=== PATIENT | female | born 1960 | race Caucasian/White ===

== ENCOUNTER 2017-07-31 14:56 | Outpatient (CLI) | payer OTHER | END 2017-07-31 14:57 | disposition home or self-care (01) | LOC: SC 14:56 | PROVIDERS: ATTEND Nurse Practitioner Family | DX: R06.83 Snoring (principal); E66.9 Obesity, unspecified | CPT/HCPCS: 99204; 99212 ==

== ENCOUNTER 2018-03-24 08:00 | Outpatient (CLI) | payer OTHER ==
[2018-03-24 12:46] LABS: BASOPHILS % (AUTO) 0.5 %; EOSINOPHILS # (AUTO) 0.1 10^3/uL (0.0-0.7); EOSINOPHILS % (AUTO) 1.9 %; HGB - HEMOGLOBIN 14.3 g/dL (12.0-16.0); LYMPHOCYTES # (AUTO) 2.1 10^3/uL (1.5-3.5); LYMPHOCYTES % (AUTO) 36.1 %; MEAN CORPUSCULAR HEMOGLOBIN 29.7 pg (27.0-31.0); MEAN CORPUSCULAR HGB CONC 33.9 g/dL (32.0-36.0); MEAN CORPUSCULAR VOLUME 87.4 fL (81.0-99.0); MEAN PLATELET VOLUME 7.6 fL (7.9-10.8); MONOCYTES # (AUTO) 0.4 10^3/uL (0.0-1.0); MONOCYTES % (AUTO) 7.1 %; NEUTROPHILS # (AUTO) 3.1 10^3/uL (1.5-6.6); NEUTROPHILS % (AUTO) 54.4 %; PLT - PLATELET COUNT 322 10^3/uL (130-450); RED BLOOD COUNT 4.81 10^6/uL (4.20-5.40); RED CELL DISTRIBUTION WIDTH 13.9 % (12.0-15.0); WHITE BLOOD COUNT 5.7 x10^3/uL (4.8-10.8)
[2018-03-24 12:57] LABS: HB2 TOTAL 15.7 g/dL; HEMOGLOBIN A1C 0.61 g/dL; HEMOGLOBIN A1C % 5.7 % (4.6-6.2)
[2018-03-24 13:06] LABS: ALBUMIN 3.8 g/dL (3.2-5.5); ALBUMIN/GLOBULIN RATIO 1.3 (1.0-2.2); ALKALINE PHOSPHATASE 99 IU/L (42-121); ALT ALANINE AMINOTRANSFERASE 32 IU/L (10-60); AST ASPARTATE AMINOTRANSFERASE 25 IU/L (10-42); BUN - BLOOD UREA NITROGEN 17 mg/dL (6-20); CALCIUM 8.9 mg/dL (8.5-10.3); CARBON DIOXIDE - CO2 27 mmol/L (21-32); CHLORIDE 103 mmol/L (101-111); CHOL/HDL RATIO 4.8 (<4.4); CHOLESTEROL 218 mg/dL; CREATININE 0.6 mg/dL (0.4-1.0); GFR - MDRD 103 (>89); GLUCOSE 107 mg/dL (70-100); HDL CHOLESTEROL 45 mg/dL; LDL CHOLESTEROL,CALCULATED 152 mg/dL; LDL/HDL RATIO 3.4 (<4.4); SODIUM 138 mmol/L (135-145); TOTAL PROTEIN 6.8 g/dL (6.7-8.2); VLDL CHOLESTEROL 21 mg/dL
== END 2018-03-24 08:01 | disposition home or self-care (01) ==
LOC: LAB.WCP 08:00
PROVIDERS: ATTEND Family Medicine
DX: R73.01 Impaired fasting glucose (principal); E78.5 Hyperlipidemia, unspecified; I10 Essential (primary) hypertension
CPT/HCPCS: 36415; 80053; 80061; 83036; 83721; 84443; 85025

== ENCOUNTER 2018-04-23 11:01 | Outpatient (CLI) | payer OTHER | END 2018-04-23 11:02 | disposition home or self-care (01) | LOC: SC 11:01 | PROVIDERS: ATTEND Nurse Practitioner Family | DX: G47.33 Obstructive sleep apnea (adult) (pediatric) (principal) | CPT/HCPCS: 99212; 99214 ==

== ENCOUNTER 2018-10-06 10:55 | Outpatient (CLI) | payer OTHER | END 2018-10-06 10:56 | disposition home or self-care (01) | LOC: SC 10:55 | PROVIDERS: ATTEND Nurse Practitioner Family | DX: G47.33 Obstructive sleep apnea (adult) (pediatric) (principal) | CPT/HCPCS: 99212; 99214 ==

== ENCOUNTER 2019-01-05 08:28 | Outpatient (CLI) | payer OTHER | END 2019-01-05 08:29 | disposition home or self-care (01) | LOC: SC 08:28 | PROVIDERS: ATTEND Nurse Practitioner Family | DX: G47.33 Obstructive sleep apnea (adult) (pediatric) (principal) | CPT/HCPCS: 99212; 99214 ==

== ENCOUNTER 2019-08-10 13:09 | Outpatient (CLI) | payer OTHER ==
--- NOTE | 2019-08-10 13:52 | SLEEP CARE CONSULTATION ---
Information from patient questionnaire entered by Loulou Cooper. I have reviewed and concur with the information entered by Loulou Cooper. This document represents the service I personally performed and the decisions made by me, Carrie Peñaloza MD, [facility]. History of Present Illness Previous diagnosis: Moderate, Obstructive Sleep Apnea-Hypopnea Syndrome AHI: 18.7 Reason for CPAP/BiPAP follow up: three month Equipment type: CPAP Equipment obtained from: [employer] Prior sleep studies: Yes (Home study) Year and Where: 2016 [facility] HPI additional information: HPI: Ms. Menard returned today for follow up of nasal CPAP therapy. She was diagnosed to have moderate obstructive sleep apnea-hypopnea syndrome. The patient wears with a nasal mask. She reports using the device nightly and all through the night. The compliance data show usage in 179 out of the past 180 nights, averaging 6.4 hours a night. She complained of no particular problem with the device such as soreness on the face, dry nose, epistaxis, nasal congestion or headache. She does not use the heated humidifier. She thinks that the pressure 4 9 cmH2O is comfortable. On the CPAP therapy she notices improvement in her sleep quality, and that she wakes up feeling fresher in the morning and more awake/alert during the day. The [place] Sleepiness Scale score 4. Her grandchildren notice no snore at all. The average residual AHI is 1.7; and air leak, 2 L/min. The 90th percentile pressure is 9 cmH2O. CPAP Compliance Data - Data Reviewed with Patient Average duration of nightly device use: 6h 21m Compliance rate %: 93 Current pressure setting (cmH2O): 4-9 Subjective Current pressure setting perceived as: comfortable Initial [place] Sleepiness Scale score: 10 Current [place] Sleepiness Scale score: 4 Allergies and Home Medications Drug allergies reviewed: Yes Home medication list reviewed: Yes Review of Systems Review of systems same as previous: Yes Physical Exam Weight: 276 lb Impression and Plan IMPRESSION: 1. Obstructive Sleep Apnea-Hypopnea Syndrome, moderate, with the patient doing well on nasal CPAP therapy. She has excellent compliance and significant clinical improvement. The current pressure appears effective and comfortable. Overall, she is very satisfied with treatment and plans to continue with it long-term. No adjustment is necessary today. PLAN: 1. Continue with autoCPAP set at 4 - 9 cmH2O. 2. Try to lose weight 3. Try ResMed N30i mask. Prescription made. 4. Return in one year for follow up or earlier if there is any problem with the treatment. I spent 100% of this 15 minute visit face to face with the patient with greater than 50% of this was spent time counseling the patient and coordination of care.
== END 2019-08-10 13:10 | disposition home or self-care (01) ==
LOC: SC 13:09
PROVIDERS: ATTEND Internal Medicine Pulmonary Disease
DX: G47.33 Obstructive sleep apnea (adult) (pediatric) (principal)
CPT/HCPCS: 99212; 99213

== ENCOUNTER 2020-08-08 13:57 | Outpatient (CLI) | payer OTHER ==
--- NOTE | 2020-08-08 16:06 | XRAY Report ---
PROCEDURE: Knee 3 View LT INDICATIONS: ARTHRITIS,LEFT KNEE TECHNIQUE: 3 views of the left knee(s) were acquired. COMPARISON: None. FINDINGS: Bones: No fractures or dislocations. No suspicious bony lesions. Moderate to severe medial compart ment narrowing with particular osteophytes. No erosions. Moderate patellofemoral compartment narrowin g. Soft tissues: Mild joint effusion. No suspicious soft tissue calcifications. IMPRESSION: Mild effusion of moderate to severe medial and patellofemoral compartment narrowing sugg estive of osteoarthritis. Reviewed by: Sharon Henderson MD on 08/08/2020 4:05 PM PDT Approved by: Sharon Henderson MD on 08/08/2020 4:05 PM PDT Station ID: [id number]
== END 2020-08-08 13:58 | disposition home or self-care (01) ==
LOC: DI 13:57
PROVIDERS: ATTEND Family Medicine
DX: M13.862 Other specified arthritis, left knee (principal)

== ENCOUNTER 2020-08-09 14:54 | Outpatient (CLI) | payer OTHER ==
--- NOTE | 2020-08-09 15:00 | SLEEP CARE CONSULTATION ---
Information from patient questionnaire entered by Leigh Ann Ryan. I have reviewed and concur with the information entered by Leigh Ann Ryan. This document represents the service I personally performed and the decisions made by me, Carrie Peñaloza MD, [facility]. History of Present Illness Service Date and Time: 08/09/2020 1454 Previous diagnosis: Moderate, Obstructive Sleep Apnea-Hypopnea Syndrome AHI: 18.7 (in 2017) Reason for follow up: annual (last seen 2019) Equipment type: CPAP Equipment obtained from: [employer] Mask style: Nasal Prior sleep studies: Yes (Home study) Year and Where: 2017 - [facility] HPI additional information: To minimize the risk of COVID-19 exposure, the patient has requested and consented to this video visit. The patient also agrees to having her insurance billed. HPI: Ms. Menard returned today for follow up of nasal CPAP therapy. She was diagnosed to have moderate obstructive sleep apnea-hypopnea syndrome. The patient wears with a nasal mask. She reports using the device nightly and all through the night. The compliance data show usage in 180 out of the past 180 nights, averaging 7.5 (was 6.4) hours a night. She complained of no particular problem with the device such as soreness on the face, dry nose, epistaxis, nasal congestion or headache. She does not use the heated humidifier. She thinks that the pressure 4 9 cmH2O is comfortable. On the CPAP therapy she notices improvement in her sleep quality, and that she wakes up feeling fresher in the morning and more awake/alert during the day. The average residual AHI is 2.3 (was 1.7); and air leak, 2.3 L/min. The 90th percentile pressure is 9 cmH2O. Sleep Study - Results Prior sleep studies: Yes (Home study) Year and Where: 2017 [facility] CPAP Compliance Data - Data Reviewed with Patient Average duration of nightly device use: 7.5 Compliance rate %: 99 (180 days) Current pressure setting (cmH2O): 4-9 Average residual AHI: 2.3 Subjective Initial [place] Sleepiness Scale score: 10 (in 2017) Allergies and Home Medications Drug allergies reviewed: Yes Home medication list reviewed: Yes Review of Systems Review of systems same as previous: Yes Physical Exam Weight: 287 lb Weight change since last visit: +9 Impression and Plan IMPRESSION: 1. Obstructive Sleep Apnea-Hypopnea Syndrome, moderate, with the patient doing well on nasal CPAP therapy. She has excellent compliance and significant clinical improvement. The current pressure appears effective and comfortable. Overall, she is very satisfied with treatment and plans to continue with it long-term. No adjustment is necessary today. PLAN: 1. Continue with autoCPAP set at 4 - 9 cmH2O. 2. Try to lose weight 3. Return in one year for follow up or earlier if there is any problem with the treatment. Visit Type: In Office Video Type: [employer] Patient Location: Home Location of Provider: Office Patient agrees and consents to this telehealth visit type: Yes Patient agrees to have their insurance billed: Yes Time Spent with Patient (minutes): 15 Provider Statement: I spent 100% of the Face to Face Visit with the patient with greater than 50% spent counseling the patient and coordination of care.
== END 2020-08-09 14:55 | disposition home or self-care (01) ==
LOC: SC 14:54
PROVIDERS: ATTEND Internal Medicine Pulmonary Disease
DX: G47.33 Obstructive sleep apnea (adult) (pediatric) (principal)

== ENCOUNTER 2021-07-24 13:36 | Outpatient (CLI) | payer OTHER ==
--- NOTE | 2021-07-24 14:49 | SLEEP CARE CONSULTATION ---
Information from patient questionnaire entered by Leigh Ann Ryan. I have reviewed and concur with the information entered by Leigh Ann Ryan. This document represents the service I personally performed and the decisions made by me, Carrie Peñaloza MD, [facility]. History of Present Illness Service Date and Time: 07/24/2021 1336 Previous diagnosis: Moderate, Obstructive Sleep Apnea-Hypopnea Syndrome AHI: 18.7 (in 2017) Reason for follow up: annual (last seen 07/2020) Equipment type: CPAP Equipment obtained from: [employer] Mask style: Nasal Prior sleep studies: Yes Year and Where: 2017 - [facility] Type of Sleep Study: Home sleep study HPI additional information: Ms. Menard returned today for follow up of nasal CPAP therapy. She was diagnosed to have moderate obstructive sleep apnea-hypopnea syndrome. The patient wears with a nasal mask. She reports using the device nightly and all through the night. The compliance data show usage in 180 out of the past 180 nights, averaging 7.2 (was 6.4) hours a night. The > 4 hour compliance rate for the past 180 days is 100%. She complained of no particular problem with the device such as soreness on the face, dry nose, epistaxis, nasal congestion or headache. She does not use the heated humidifier. She thinks that the pressure 4 9 cmH2O is comfortable. On the CPAP therapy she notices improvement in her sleep quality, and that she wakes up feeling fresher in the morning and more awake/alert during the day. The average residual AHI is 1.6 (was 1.7); and air leak, 3.2 L/min. The 90th percentile pressure is 9 cmH2O. CPAP Compliance Data - Data Reviewed with Patient Average duration of nightly device use: 7 hr 10 min Compliance rate %: 100 (180 days) Current pressure setting (cmH2O): 4-9 Humidity settin Average residual AHI: 1.6 Subjective Current pressure setting perceived as: comfortable Initial [place] Sleepiness Scale score: 10 (in 2017) Current [place] Sleepiness Scale score: 3 Allergies and Home Medications Drug allergies reviewed: Yes Home medication list reviewed: Yes Review of Systems Review of systems same as previous: Yes Physical Exam Weight: 290 lb Weight change since last visit: +3 Impression and Plan IMPRESSION: 1. Obstructive Sleep Apnea-Hypopnea Syndrome, moderate, with the patient doing well on nasal CPAP therapy. She has excellent compliance and significant clinical improvement. The current pressure appears effective and comfortable. Overall, she is very satisfied with treatment and plans to continue with it long-term. No adjustment is necessary today. PLAN: 1. Continue with autoCPAP set at 4 - 9 cmH2O. 2. Try to lose weight 3. Try ResMed N30i mask and Respironics DreamWear nasal cushion mask. 4. Return in one year for follow up or earlier if there is any problem with the treatment. Counseling Topics: Weight control Follow up with Sleep Care in: 1 year Visit Type: In Office Time Spent with Patient (minutes): 15 Provider Statement: I spent 100% of the Face to Face Visit with the patient with greater than 50% spent counseling the patient and coordination of care.
== END 2021-07-24 13:37 | disposition home or self-care (01) ==
LOC: SC 13:36
PROVIDERS: ATTEND Internal Medicine Pulmonary Disease
DX: G47.33 Obstructive sleep apnea (adult) (pediatric) (principal)
CPT/HCPCS: 99212

== ENCOUNTER 2021-12-18 06:45 | Outpatient (CLI) | payer OTHER ==
--- NOTE | 2021-12-18 16:43 | Ultrasound Report ---
PROCEDURE: Abdomen Limited INDICATIONS: ELEVATED LIVER ENZYMES TECHNIQUE: Real-time scanning was performed of the abdominal and retroperitoneal organs, with image documentatio n. COMPARISON: None. FINDINGS: Liver: Liver is enlarged measuring 22 cm. Diffuse steatosis is present. Gallbladder: Bilateral unremarkable. No stones. Wall thickness is within normal limits measuring 1.7 mm. Biliary ducts: Intrahepatic bile ducts are non-dilated. Extrahepatic bile duct caliber measures 5.1 mm. Normal is 6-7 mm or less in diameter, or 10 mm or less post-cholecystectomy. Pancreas: Visualized portions of the pancreas are sonographically normal. Kidneys: Right kidney measures 10.9 cm long. No hydronephrosis or nephrolithiasis. No solid masses . IMPRESSION: Hepatomegaly with steatosis. Reviewed by: Sharon Henderson MD on 12/18/2021 4:42 PM PST Approved by: Sharon Henderson MD on 12/18/2021 4:42 PM PST Station ID: [id number]
== END 2021-12-18 06:46 | disposition home or self-care (01) ==
LOC: DI 06:45
PROVIDERS: ATTEND Physician Assistant Medical
DX: K76.0 Fatty (change of) liver, not elsewhere classified (principal); R74.8 Abnormal levels of other serum enzymes

== ENCOUNTER 2021-12-25 10:29 | Outpatient (CLI) | payer OTHER ==
--- NOTE | 2021-12-25 16:35 | XRAY Report ---
PROCEDURE: Chest 2 View X-Ray INDICATIONS: DYSPNEA ON EXERTION TECHNIQUE: 2 view(s) of the chest. COMPARISON: None. FINDINGS: Surgical changes and devices: None. Lungs and pleura: No pleural effusions or pneumothorax. Lungs are clear. Mediastinum: Mediastinal contours are normal. Heart size is normal. Bones and chest wall: No suspicious bony abnormalities. Soft tissues appear unremarkable. IMPRESSION: No acute cardiopulmonary pathology. Reviewed by: Lorenzo Herrmann MD on 12/25/2021 4:34 PM PST Approved by: Lorenzo Herrmann MD on 12/25/2021 4:34 PM [facility] Station ID: [id number]
== END 2021-12-25 23:59 | disposition home or self-care (01) ==
LOC: DI.N 10:29
PROVIDERS: ATTEND Physician Assistant
DX: R06.09 Other forms of dyspnea (principal)

== ENCOUNTER 2022-04-30 14:33 | Outpatient (CLI) | payer OTHER ==
--- NOTE | 2022-05-01 13:43 | Mammography Report ---
BILATERAL DIGITAL SCREENING MAMMOGRAM 3D/2D: 04/30/2022 CLINICAL: Family history of breast cancer. Routine screening. Comparison is made to exam dated: 08/10/2013 mammogram - [facility]. There are sca ttered fibroglandular elements in both breasts. No significant masses, calcifications, or other findings are seen in either breast. There has been no significant interval change. IMPRESSION: NEGATIVE There is no mammographic evidence of malignancy. A 1 year screening mammogram is recommended. This exam was interpreted at Station ID: [id number]. NOTE: For mammograms, a report in lay terms will be sent to the patient. Approximately 15% of breast malignancies will not be visualized mammographically. In the management of a palpable breast mass, a negative mammogram must not discourage biopsy of a clinically suspicious lesion. Electronically Signed By: Filiberto Clark M.D. slc/penrad:04/30/2022 17:06:05 ACR BI-RADS Category 1: Negative 3341F PARENCHYMAL PATTERN: (A) - The breast(s) demonstrate(s) scattered fibroglandular densities. BI-RADS CATEGORY: (1) - 1 RECOMMENDATION: (ANNUAL) - Recommend routine annual screening mammography. [id number] 1 year screening LATERALITY: (B)
== END 2022-04-30 14:34 | disposition home or self-care (01) ==
LOC: DI.N 14:33
PROVIDERS: ATTEND Physician Assistant
DX: Z12.31 Encounter for screening mammogram for malignant neoplasm of breast (principal); Z80.3 Family history of malignant neoplasm of breast

== ENCOUNTER 2022-10-15 13:49 | Outpatient (CLI) | payer OTHER ==
[2022-10-15 19:25] VITALS: BP 138/78
--- NOTE | 2022-10-15 19:25 | SLEEP CARE CONSULTATION ---
Information from patient questionnaire entered by Peggy Welsh. I have reviewed and concur with the information entered by Peggy Welsh. This document represents the service I personally performed and the decisions made by me, Carrie Peñaloza MD, [facility]. History of Present Illness Service Date and Time: 10/15/2022 1349 Previous diagnosis: Moderate, Obstructive Sleep Apnea-Hypopnea Syndrome AHI: 18.7 (in 2017) Reason for follow up: annual (LAST SEEN 07/2021) Equipment type: CPAP (RESMED) Equipment obtained from: [employer] Mask style: Nasal Prior sleep studies: Yes Year and Where: 2016 - [facility] Type of Sleep Study: Home sleep study HPI additional information: Ms. Menard returned today for an annual follow up of nasal CPAP therapy. She was diagnosed to have moderate obstructive sleep apnea-hypopnea syndrome. The patient wears with a nasal mask. She reports using the device nightly and all through the night. The compliance data show usage in 180 out of the past 180 nights, averaging 7.5 (was 7.2) hours a night. The > 4 hour compliance rate for the past 180 days is 99%. She complained of no particular problem with the device such as soreness on the face, dry nose, epistaxis, nasal congestion or headache. She does not use the heated humidifier. She thinks that the pressure 4 9 cmH2O is comfortable. On the CPAP therapy she notices improvement in her sleep quality, and that she wakes up feeling fresher in the morning and more awake/alert during the day. The average residual AHI is 2.1 (was 1.7); and air leak, 2.4 L/min. The 90th percentile pressure is 9 cmH2O. Sleep Study - Results Type of Sleep Study: Home sleep study Prior sleep studies: Yes Year and Where: 2016 - [facility] CPAP Compliance Data - Data Reviewed with Patient Average duration of nightly device use: 7HRS 28MIN Compliance rate %: 99 (04/15/22-10/11/22) Current pressure setting (cmH2O): 4-9 Average residual AHI: 2.1 Subjective Initial [place] Sleepiness Scale score: 10 (in 2017) Allergies and Home Medications Drug allergies reviewed: Yes Home medication list reviewed: Yes Review of Systems Review of systems same as previous: Yes Physical Exam Vital signs obtained and entered by: PEGGY Rascon MA Blood Pressure: 138/78 (LEFT ARM) Cuff size: long Heart Rate: 68 O2 Saturation: 97 Height: 5 ft 5.5 in Weight: 299 lb 3.2 oz Body Mass Index: 49.0 BMI Classification: Morbidly Obese Impression and Plan IMPRESSION: 1. Obstructive Sleep Apnea-Hypopnea Syndrome, moderate, with the patient continuing to do well on nasal CPAP therapy. She has excellent compliance and significant clinical improvement. The current pressure appears effective and co mfortable. Overall, she is very satisfied with treatment and plans to continue with it long-term. No adjustment is necessary today. PLAN: 1. Continue with autoCPAP set at 4 - 9 cmH2O. 2. Try to lose weight 3. Return in one year for follow up or earlier if there is any problem with the treatment. She will be eligible for a new machine then. Follow up with Sleep Care in: 1 year Visit Type: In Office Time Spent with Patient (minutes): 15 Provider Statement: I spent 100% of the Face to Face Visit with the patient with greater than 50% spent counseling the patient and coordination of care.
== END 2022-10-15 13:50 | disposition home or self-care (01) ==
LOC: SC 13:49
PROVIDERS: ATTEND Internal Medicine Pulmonary Disease
DX: G47.33 Obstructive sleep apnea (adult) (pediatric) (principal); E66.01 Morbid (severe) obesity due to excess calories; Z68.42 Body mass index [BMI] 45.0-49.9, adult
CPT/HCPCS: 99212

== ENCOUNTER 2023-07-01 10:35 | Outpatient (CLI) | payer OTHER ==
[2023-07-01 18:13] LABS: BASOPHILS % (AUTO) 0.7 %; EOSINOPHILS # (AUTO) 0.1 10^3/uL (0.0-0.7); EOSINOPHILS % (AUTO) 2.1 %; HCT - HEMATOCRIT 45.7 % (37.0-47.0); HGB - HEMOGLOBIN 14.9 g/dL (12.0-16.0); LYMPHOCYTES # (AUTO) 2.4 10^3/uL (1.5-3.5); LYMPHOCYTES % (AUTO) 41.5 %; MEAN CORPUSCULAR HEMOGLOBIN 30.8 pg (27.0-31.0); MEAN CORPUSCULAR HGB CONC 32.6 g/dL (32.0-36.0); MEAN CORPUSCULAR VOLUME 94.6 fL (81.0-99.0); MEAN PLATELET VOLUME 9.6 fL (7.9-10.8); MONOCYTES # (AUTO) 0.5 10^3/uL (0.0-1.0); MONOCYTES % (AUTO) 7.8 %; NEUTROPHILS # (AUTO) 2.7 10^3/uL (1.5-6.6); NEUTROPHILS % (AUTO) 47.6 %; PLT - PLATELET COUNT 338 10^3/uL (130-450); RED BLOOD COUNT 4.83 10^6/uL (4.20-5.40); RED CELL DISTRIBUTION WIDTH 12.9 % (12.0-15.0); WHITE BLOOD COUNT 5.8 x10^3/uL (4.8-10.8)
[2023-07-01 18:26] LABS: ALBUMIN 4.3 g/dL (3.2-5.5); ALBUMIN/GLOBULIN RATIO 1.5 (1.0-2.2); ALKALINE PHOSPHATASE 79 IU/L (42-121); ALT ALANINE AMINOTRANSFERASE 38 IU/L (10-60); AST ASPARTATE AMINOTRANSFERASE 22 IU/L (10-42); BILIRUBIN,TOTAL 0.7 mg/dL (0.2-1.0); BUN - BLOOD UREA NITROGEN 22 mg/dL (6-20); CALCIUM 9.7 mg/dL (8.5-10.3); CARBON DIOXIDE - CO2 32 mmol/L (21-32); CHLORIDE 101 mmol/L (101-111); CHOL/HDL RATIO 4.4 (<4.4); CHOLESTEROL 207 mg/dL; CREATININE 0.7 mg/dL (0.6-1.3); GFR - MDRD 85 (>89); GLUCOSE 103 mg/dL (74-104); HDL CHOLESTEROL 47 mg/dL; LDL CHOLESTEROL,CALCULATED 125 mg/dL; LDL/HDL RATIO 2.7 (<4.4); POTASSIUM 4.3 mmol/L (3.5-4.5); SODIUM 139 mmol/L (135-145); TOTAL PROTEIN 7.2 g/dL (6.4-8.9); TRIGLYCERIDES 174 mg/dL (48-352); VLDL CHOLESTEROL 35 mg/dL
[2023-07-01 18:39] LABS: THYROID STIMULATING HORMONE 1.36 uIU/mL (0.34-5.60)
[2023-07-01 21:20] LABS: ESTIMATED AVERAGE GLUCOSE 126 mg/dL (70-100)
== END 2023-07-01 10:36 | disposition home or self-care (01) ==
LOC: LAB.N 10:35
PROVIDERS: ATTEND Physician Assistant
DX: E78.5 Hyperlipidemia, unspecified (principal); R73.03 Prediabetes; R73.01 Impaired fasting glucose; I10 Essential (primary) hypertension
CPT/HCPCS: 36415; 80053; 80061; 83036; 83721; 84443; 85025

== ENCOUNTER 2023-10-21 13:54 | Outpatient (CLI) | payer OTHER ==
--- NOTE | 2023-10-21 14:50 | SLEEP CARE CONSULTATION ---
Information from patient questionnaire entered by Peggy Welsh. I have reviewed and concur with the information entered by Peggy Welsh. This document represents the service I personally performed and the decisions made by me, Carrie Peñaloza MD, [facility]. History of Present Illness Service Date and Time: 10/21/2023 1354 Previous diagnosis: Moderate, Obstructive Sleep Apnea-Hypopnea Syndrome AHI: 18.7 (in 2017) Reason for follow up: annual (LAST SEEN 10/2022) Equipment type: CPAP (RESMED) Equipment obtained from: [employer] Mask style: Nasal Prior sleep studies: Yes Year and Where: 2016 - [facility] Type of Sleep Study: Home sleep study HPI additional information: Ms. Menard returned today for an annual follow up of nasal CPAP therapy. She was diagnosed to have moderate obstructive sleep apnea-hypopnea syndrome. The patient wears a nasal mask. She reports using the device nightly and all through the night. The compliance data show usage in 362 out of the past 365 nights, averaging 7.3 (was 7.5) hours a night. The > 4 hour compliance rate for the past 365 days is 99%. She complained of no particular problem with the device such as soreness on the face, dry nose, epistaxis, nasal congestion or headache. She does not use the heated humidifier. She thinks that the pressure 4 9 cmH2O is comfortable. On the CPAP therapy she notices improvement in her sleep quality, and that she wakes up feeling fresher in the morning and more awake/alert during the day. The average residual AHI is 1.9 (was 1.7); and air leak, 2.1 L/min. The 90th percentile pressure is 9 cmH2O. Sleep Study - Results Type of Sleep Study: Home sleep study Prior sleep studies: Yes Year and Where: 2016 - [facility] Subjective Initial [place] Sleepiness Scale score: 10 (in 2017) Current [place] Sleepiness Scale score: 7 (10/21/23) Allergies and Home Medications Drug allergies reviewed: Yes Home medication list reviewed: Yes Review of Systems Review of systems same as previous: Yes (NO CHANGE) Physical Exam Vital signs obtained and entered by: PEGGY Rascon MA Blood Pressure: 161/72 (RIGHT ARM) Cuff size: long Heart Rate: 65 O2 Saturation: 95 Height: 5 ft 5.5 in Weight: 296 lb 9.6 oz Body Mass Index: 48.6 BMI Classification: Morbidly Obese Impression and Plan IMPRESSION: 1. Obstructive Sleep Apnea-Hypopnea Syndrome, moderate, with the patient continuing to do well on nasal CPAP therapy. She has excellent compliance and significant clinical improvement. The current pressure appears effective and comfortable. Overall, she is very satisfied with treatment, and plans to continue with it long-term. No adjustment is necessary today. Her ResMed AirSense 10 is now 5 years old but she does not want a new one. PLAN: 1. Continue with autoCPAP set at 4 - 9 cmH2O. 2. Try to lose weight 3. Return for a follow up in a year or earlier if there is any problem. Counseling Topics: Weight control Follow up with Sleep Care in: 1 year Visit Type: In Office Time Spent with Patient (minutes): 15 Provider Statement: I spent 100% of the Face to Face Visit with the patient with greater than 50% spent counseling the patient and coordination of care.
[2023-10-21 14:54] VITALS: BP 161/72; O2SAT 95
== END 2023-10-21 13:55 | disposition home or self-care (01) ==
LOC: SC 13:54
PROVIDERS: ATTEND Nurse Practitioner Family
DX: G47.33 Obstructive sleep apnea (adult) (pediatric) (principal); E66.01 Morbid (severe) obesity due to excess calories; Z68.42 Body mass index [BMI] 45.0-49.9, adult
CPT/HCPCS: 99212